=== PATIENT | female | born 2000 | race Caucasian/White ===

== ENCOUNTER 2021-07-16 17:48 | Inpatient (IN) | payer MEDICAID, SELFPAY ==
[~2021-07-16] VITALS: Ht 165.1 cm; Wt 66.2 kg
--- NOTE | 2021-07-16 17:50 | NUR ---
Pt triaged and placed in waiting room.
[2021-07-16 18:03] VITALS: BP_SYST 138
--- NOTE | 2021-07-16 21:52 | NUR ---
PT TO BED 6 FOR EVALUATION.
--- NOTE | 2021-07-16 22:00 | NUR ---
RECEIVED PT IN ROOM 6, AAOX4, SKIN W/D TO TOUCH W/ C/O OF MID EPIGASTRIC ABD PAIN THAT STARTED 3 HRS AGO, 08/29. PENDING ER MD FAJRADO
[2021-07-16] MEDS ORDERED: MAG HYDROX/AL HYDROX/SIMETH 30 ML, LIDOCAINE VISCOUS 2% 15ML (PO) 15 ML, DICYCLOMINE HC... PO ONE ×3 (22:15)
--- NOTE | 2021-07-16 22:20 | NUR ---
SEEN BY SHELBY FLOWERS.
[2021-07-16 23:04] LABS: BASOPHILS % (AUTO) 0.4 % (0.0-2.0); EOSINOPHILS # (AUTO) 0.1 K/uL (0.0-0.4); EOSINOPHILS % (AUTO) 0.7 % (0.0-4.0); HEMATOCRIT 37.1 % (36-48); HEMOGLOBIN 12.7 g/dL (12.0-16.0); LYMPHOCYTES # (AUTO) 2.8 K/uL (1.0-5.5); LYMPHOCYTES % (AUTO) 27.2 % (20.5-51.5); MEAN CORPUSCULAR HEMOGLOBIN 27 pg (27-31); MEAN CORPUSCULAR HGB CONC 34 % (32-36); MEAN CORPUSCULAR VOLUME 80 fL (79.0-98.0); MONOCYTES # (AUTO) 0.9 K/uL (0.0-1.0); MONOCYTES % (AUTO) 9.1 % (1.7-9.3); NEUTROPHILS # (AUTO) 6.3 K/uL (1.8-7.7); NEUTROPHILS % (AUTO) 62.6 % (40.0-70.0); PLATELET COUNT (AUTO) 278 K/uL (130-430); RED BLOOD CELL COUNT(AUTO) 4.65 MIL/uL (4.2-6.2); RED CELL DISTRIBUTION WIDTH 14.6 % (9.0-15.0); WHITE BLOOD COUNT (AUTO) 10.1 K/uL (4.8-10.8)
[2021-07-16 23:08] LABS: CREATININE 0.62 mg/dL (0.55-1.30); POTASSIUM 3.7 mmol/L (3.5-5.1)
[2021-07-16 23:14] LABS: ALBUMIN 3.8 g/dL (3.4-4.8); TOTAL BILIRUBIN 1.1 mg/dL (0.0-1.0)
--- NOTE | 2021-07-16 23:30 | NUR ---
S/P GI COCTAIL, PT PAIN IS UNRELIEVED. WARM TE GIVEN. AT PRESENT PT PAIN LEVEL IS 5/10. PENDING RE-TIERA. Addendum: 07/16/21 at 2331 by [email or web address] URINE COLLECTED, IN ISERTED. RESTING QUIETLY
--- NOTE | 2021-07-16 23:54 | NUR ---
AT PRESENT PT ASLEEP, VOICES NO C/O PAIN OR DISCOMFORT.
[2021-07-17] MEDS ORDERED: KETOROLAC TROMETHAMINE 30 MG VIAL IVP ONE
[2021-07-17] MEDS ORDERED: NACL 0.9% 1,000 ML IV ONE
[2021-07-17 00:06] LABS: BILIRUBIN,URINE NEGATIVE (NEGATIVE); BLOOD, URINE NEGATIVE (NEGATIVE); CLARITY/URINE SL CLOUDY (CLEAR); COLOR,URINE YELLOW (YELLOW); GLUCOSE,URINE NEGATIVE (NEGATIVE); KETONES,URINE NEGATIVE (NEGATIVE); LEUKOCYTE ESTERASE ,URINE NEGATIVE (NEGATIVE); NITRITE, URINE NEGATIVE (NEGATIVE); PH,URINE 6.5 (5.0-8.0); PROTEIN URINE TRACE (NEGATIVE); UROBILINOGEN,URINE 0.2 (0.2-1.0)
[2021-07-17] MEDS ORDERED: PIPERACILLIN/TAZO 3.375 GM in NS 50 ML IV ONE (02:15)
[2021-07-17] MEDS ORDERED: PIPERACILLIN/TAZOBACTAM 3.375 GM/VIAL (ZOSYN) IV ONE (02:23)
[2021-07-17] MEDS ORDERED: ONDANSETRON HCL 4 MG/2 ML VIAL ONE ×2 (02:26→13:59)
[2021-07-17] MEDS ORDERED: KETOROLAC TROMETHAMINE 30 MG VIAL ONE (02:26)
--- NOTE | 2021-07-17 03:00 | NUR ---
PT ASLEEP, PAIN 3/10, MID UPPER GATRIC ABD AREA. PENDING MD DISPOSITION
[2021-07-17] MEDS ORDERED: MORPHINE 2 MG/ML INJ. SYRINGE IVP PRN (06:30)
[2021-07-17] MEDS ORDERED: ONDANSETRON HCL 4 MG/2 ML VIAL IVP PRN ×2 (06:30→12:30)
--- NOTE | 2021-07-17 06:30 | NUR ---
APatient will be admitted to care of [facility]. Admitted to MED SURG unit. PENDING ROOM ASSIGNMENT. Belongings list completed. Complete and up to date summary report printed. SBAR report to be given at bedside with opportunity for questions.
--- NOTE | 2021-07-17 06:47 | NUR ---
NEW ORDERS FOR ADMISSION TO ME, R/O CAUSE OF ABD PAIN POS. CHOLECYSTITIS. PT RESTING QUIETLY VS WNL. RESP REG NON-LABORED.
--- NOTE | 2021-07-17 07:15 | NUR ---
report received from Mila HILL
--- NOTE | 2021-07-17 08:21 | NUR ---
Patient will be admitted to care of DR. GOODEN. Admitted to MED SURG unit. Will go to room 117-B. Belongings list completed. Complete and up to date summary report printed. SBAR report to be given at bedside with opportunity for questions. IV SITE PATENT AND INFUSING WELL
--- NOTE | 2021-07-17 08:30 | NUR ---
Admit from ER Admit patient to medical-surgical unit. Received report at bedside. Patient awake and oriented x 4, ambulatory without assist. Indian-speaking only. No signs or symptoms of distress. Patient reports intermittent pain 3/10. Refusing medication at this time stating pain is tolerable.
--- NOTE | 2021-07-17 08:55 | NUR ---
CT Abdomen Patient taken to receive CT scan of abd.
--- NOTE | 2021-07-17 08:55 | NUR ---
CONSULTATION PAGED/CALLED Reason for Consultation: [] POSS CHOLECYSTITIS Person Who was Notified: [] DR ZAFAR Consulting Physician: [] DR ZAFAR Dispensary Clerk Specialty: [] GEN SURGEON Ordering Physician: [] DR GOODEN
--- NOTE | 2021-07-17 08:57 | NUR ---
CONSULTATION PAGED/CALLED Reason for Consultation: [] POSS CHOLECYSTITIS Person Who was Notified: [] ZOE Consulting Physician: [] DR SANFORD RECORDS SUPERVISOR FOR DR BERRY Railroad Car Cleaner Specialty: [] GI Ordering Physician: [] DR GOODEN
[2021-07-17 09:00] VITALS: BP_SYST 114
--- NOTE | 2021-07-17 09:15 | NUR ---
Notes Patient returned from CT scan.
[2021-07-17 09:42] VITALS: BP_SYST 114
[2021-07-17 10:30] LABS: BASOPHILS % (AUTO) 0.5 % (0.0-2.0); EOSINOPHILS # (AUTO) 0.1 K/uL (0.0-0.4); EOSINOPHILS % (AUTO) 0.9 % (0.0-4.0); HEMATOCRIT 37.2 % (36-48); HEMOGLOBIN 12.6 g/dL (12.0-16.0); LYMPHOCYTES # (AUTO) 1.4 K/uL (1.0-5.5); LYMPHOCYTES % (AUTO) 23.1 % (20.5-51.5); MEAN CORPUSCULAR HEMOGLOBIN 27 pg (27-31); MEAN CORPUSCULAR HGB CONC 34 % (32-36); MEAN CORPUSCULAR VOLUME 81 fL (79.0-98.0); MONOCYTES # (AUTO) 0.6 K/uL (0.0-1.0); MONOCYTES % (AUTO) 10.3 % (1.7-9.3); NEUTROPHILS % (AUTO) 65.2 % (40.0-70.0); PLATELET COUNT (AUTO) 269 K/uL (130-430); RED BLOOD CELL COUNT(AUTO) 4.62 MIL/uL (4.2-6.2); RED CELL DISTRIBUTION WIDTH 14.8 % (9.0-15.0); WHITE BLOOD COUNT (AUTO) 6.1 K/uL (4.8-10.8)
[2021-07-17 10:42] LABS: CALCIUM 8.2 mg/dL (8.4-11.0); CREATININE 0.59 mg/dL (0.55-1.30)
[2021-07-17 10:48] LABS: PROTHROMBIN TIME 10.5 SECS (9.5-12.5)
[2021-07-17 10:52] LABS: ALBUMIN 3.3 g/dL (3.4-4.8); TOTAL BILIRUBIN 1.1 mg/dL (0.0-1.0)
--- NOTE | 2021-07-17 11:10 | NUR ---
Surgery Patient taken to OR for surgery.
[2021-07-17] MEDS: KCL 20 mEq in D5/0.45NS 1000mL 1,000 ML IV SCH ×3 (11:30→23:06)
[2021-07-17] MEDS ORDERED: SEVOFLURANE 15 MIN GAS INH ONE ×2 (12:00→13:53)
[2021-07-17] MEDS ORDERED: GLYCOPYRROLATE 0.2 MG/ML VIAL IJ ONE (12:00)
[2021-07-17] MEDS ORDERED: MIDAZOLAM HCL 5 MG/5 ML VIAL IVP ONE ×2 (12:00→13:53)
[2021-07-17] MEDS ORDERED: fentaNYL CITRATE/PF 100 MCG/2 ML AMP IVP ONE ×2 (12:00→13:53)
[2021-07-17] MEDS ORDERED: PROPOFOL 200MG/ 20ML VIAL (DIPRIVAN) IV ONE ×2 (12:00→13:53)
[2021-07-17] MEDS ORDERED: LR 1,000 ML IV.SOLN IV ONE (12:00)
[2021-07-17] MEDS ORDERED: NEOSTIGMINE METHYLSULFATE 1 MG/ML, 10 ML VIAL IVP ONE (12:00)
[2021-07-17] MEDS ORDERED: NS IRRIG SOLN 1000 ML IR ONE (12:00)
[2021-07-17] MEDS ORDERED: CEFAZOLIN 2 GM IVPB PREMIX 50 ML IV ONE (12:00)
[2021-07-17] MEDS ORDERED: ROCURONIUM BROMIDE 10 MG/ML (ZEMURON) IV ONE (12:00)
[2021-07-17] MEDS ORDERED: METOCLOPRAMIDE HCL 10 MG/2 ML VIAL IVP PRN (12:30)
[2021-07-17] MEDS ORDERED: fentaNYL CITRATE/PF 100 MCG/2 ML AMP IVP PRN (12:30)
[2021-07-17] MEDS: fentaNYL CITRATE/PF 100 MCG/2 ML AMP IVP PRN ×2 (13:49→14:05)
[2021-07-17] MEDS ORDERED: SUCCINYLCHOLINE CHLORIDE 20 MG/ML(QUELICIN) IVP ONE (13:53)
[2021-07-17] MEDS ORDERED: SUGAMMADEX SODIUM 200 MG/2 ML VIAL IV ONE (13:53)
[2021-07-17] MEDS ORDERED: ONDANSETRON HCL 4 MG/2 ML VIAL IVP ONE ×2 (13:53)
[2021-07-17] MEDS ORDERED: ePHEDrine sulfate 50 MG/ML VIAL IVP ONE (13:53)
[2021-07-17] MEDS ORDERED: DEXAMETHASONE SOD PHOSPHATE 4 MG/ML VIAL IVP ONE (13:53)
[2021-07-17] MEDS ORDERED: METOCLOPRAMIDE HCL 10 MG/2 ML VIAL IVP ONE (13:53)
[2021-07-17] MEDS ORDERED: NS 1000 ML IV.SOLN IV ONE (13:53)
[2021-07-17] MEDS ORDERED: fentaNYL CITRATE/PF 100 MCG/2 ML AMP ONE (13:59)
--- NOTE | 2021-07-17 15:07 | NUR ---
notes received pt from surgery s/p lap cholecystectomy with cholangiogram x3 incision noted, with NORMA drain on the right abdomen empty at this time. patient is drowsy. pain is controlled. will monitor.
[2021-07-17] MEDS: MORPHINE 4 MG INJ. 4 MG/ML VIAL IVP PRN (15:45)
[2021-07-17 16:00] VITALS: BP_SYST 127
--- NOTE | 2021-07-17 17:00 | NUR ---
Seen by Dr. Seth at bedside and explain about ERCP in AM with nurse who speak luxembourgish.
[2021-07-17] MEDS: HYDROcodone/ACETAMIN 5-325 MG TAB (NORCO/ VICODIN) PO PRN ×2 (17:09→22:42)
--- NOTE | 2021-07-17 18:00 | NUR ---
Notes attempt to ambulate patient on the bathroom but feels dizzy, pt put back to bed, patient able to void on bedpan,
--- NOTE | 2021-07-17 19:30 | NUR ---
Opening note Received report from day nurse. Pt resting with HOB elevated. Eyes closed, verbally responsive, alert x4 and Albanian speaking. No respiratory distress, non labored breathing. IV on LAC running IVF. All needs attended to, call light within reach. Bed to lowest/locked/alarmed. On fall/aspiration precaution.
[2021-07-17 20:00] VITALS: BP_SYST 134
--- NOTE | 2021-07-17 22:30 | NUR ---
note ambulated pt to bathroom, steady gate noted, no respiratory distress, pain noted at surgery site. Given pain medication PRN.
[2021-07-18] VITALS: BP_SYST 128
--- NOTE | 2021-07-18 06:14 | NUR ---
Closing note Pt sleeping, awake easily, alertx4, no SOB noted at this time. IV site patent and intact, no complications at this time. Bed to lowest/locked/alarmed. Call light within reach, on fall/aspiration precaution.
[2021-07-18 08:00] VITALS: BP_SYST 126
[2021-07-18 08:03] LABS: BASOPHILS % (AUTO) 0.5 % (0.0-2.0); EOSINOPHILS # (AUTO) 0.1 K/uL (0.0-0.4); EOSINOPHILS % (AUTO) 1.4 % (0.0-4.0); HEMATOCRIT 38.6 % (36-48); HEMOGLOBIN 12.8 g/dL (12.0-16.0); LYMPHOCYTES # (AUTO) 1.9 K/uL (1.0-5.5); LYMPHOCYTES % (AUTO) 28.5 % (20.5-51.5); MEAN CORPUSCULAR HEMOGLOBIN 27 pg (27-31); MEAN CORPUSCULAR HGB CONC 33 % (32-36); MEAN CORPUSCULAR VOLUME 81 fL (79.0-98.0); MONOCYTES # (AUTO) 0.5 K/uL (0.0-1.0); NEUTROPHILS # (AUTO) 4.1 K/uL (1.8-7.7); NEUTROPHILS % (AUTO) 61.6 % (40.0-70.0); PLATELET COUNT (AUTO) 251 K/uL (130-430); RED BLOOD CELL COUNT(AUTO) 4.74 MIL/uL (4.2-6.2); RED CELL DISTRIBUTION WIDTH 14.7 % (9.0-15.0); WHITE BLOOD COUNT (AUTO) 6.6 K/uL (4.8-10.8)
[2021-07-18 08:04] LABS: PROTHROMBIN TIME 10.4 SECS (9.5-12.5)
[2021-07-18 08:57] LABS: ALBUMIN 3.2 g/dL (3.4-4.8); CALCIUM 8.2 mg/dL (8.4-11.0); CREATININE 0.62 mg/dL (0.55-1.30); POTASSIUM 3.7 mmol/L (3.5-5.1); TOTAL BILIRUBIN 1.1 mg/dL (0.0-1.0)
--- NOTE | 2021-07-18 09:49 | NUR ---
Nutrition Update Bradley Scale 18 noted. Pt admitted for possible cholecystitis. Diet: NPO BMI: 24.3 kg/m2 RD to follow per nutrition care standards.
[2021-07-18] MEDS: KCL 20 mEq in D5/0.45NS 1000mL 1,000 ML IV SCH (11:48)
[2021-07-18] MEDS: MORPHINE 4 MG INJ. 4 MG/ML VIAL IVP PRN (11:52)
[2021-07-18 16:14] VITALS: BP_SYST 117
[2021-07-18 20:50] VITALS: BP_SYST 128
--- NOTE | 2021-07-18 21:15 | NUR ---
Note During initial body assessment, pt voice concern regarding vaginal spotting. Visual check, no blood noted, drea-care noted very minimal brown to dark red smudge tinged on a white wash towel. No compliant of pain or discomfort. Vitals and labs within normal range. According to the pt last menstrual cycle was 1 week ago and had a neg test when admitted into the ER. Paged Dr. Jaimes regarding pt's concern. Received order, [employer] + transvag non preg.
[2021-07-18] MEDS: HYDROcodone/ACETAMIN 5-325 MG TAB (NORCO/ VICODIN) PO PRN (21:46)
[2021-07-19] VITALS: BP_SYST 134
[2021-07-19] MEDS: KCL 20 mEq in D5/0.45NS 1000mL 1,000 ML IV SCH (00:04)
--- NOTE | 2021-07-19 03:15 | NUR ---
note Pt sleeping, no facial grimacing at this time. All needs provided.
--- NOTE | 2021-07-19 06:25 | NUR ---
Closing note Pt resting in bed, no distress or discomfort. IV patent and intact, no complications. IVF running. All needs attended to and met. Call light within reach. Bed to lowest/locked/alarmed. On fall/aspiration precaution. Will endorse to day nurse.
[2021-07-19 07:00] VITALS: BP_SYST 120
[2021-07-19 07:19] LABS: BASOPHILS % (AUTO) 0.5 % (0.0-2.0); EOSINOPHILS # (AUTO) 0.1 K/uL (0.0-0.4); EOSINOPHILS % (AUTO) 2.2 % (0.0-4.0); HEMATOCRIT 39.1 % (36-48); HEMOGLOBIN 12.9 g/dL (12.0-16.0); LYMPHOCYTES # (AUTO) 1.5 K/uL (1.0-5.5); LYMPHOCYTES % (AUTO) 27.5 % (20.5-51.5); MEAN CORPUSCULAR HEMOGLOBIN 27 pg (27-31); MEAN CORPUSCULAR HGB CONC 33 % (32-36); MEAN CORPUSCULAR VOLUME 82 fL (79.0-98.0); MONOCYTES # (AUTO) 0.4 K/uL (0.0-1.0); MONOCYTES % (AUTO) 8.3 % (1.7-9.3); NEUTROPHILS # (AUTO) 3.3 K/uL (1.8-7.7); NEUTROPHILS % (AUTO) 61.5 % (40.0-70.0); PLATELET COUNT (AUTO) 264 K/uL (130-430); RED BLOOD CELL COUNT(AUTO) 4.78 MIL/uL (4.2-6.2); RED CELL DISTRIBUTION WIDTH 14.7 % (9.0-15.0); WHITE BLOOD COUNT (AUTO) 5.3 K/uL (4.8-10.8)
--- NOTE | 2021-07-19 07:35 | NUR ---
NURSE REPORT REPORT OBTAINED FROM NIGHT NURSE EMMA AND THIS NURSE ASSUMED CARE OF PATIENT. RECEIVED PATIENT ASLEEP WITHOUT ANY SXS OF PAIN OR DISTRESS.
[2021-07-19 08:00] VITALS: BP_SYST 120
[2021-07-19 08:18] LABS: ALBUMIN 3.3 g/dL (3.4-4.8); CALCIUM 8.6 mg/dL (8.4-11.0); CREATININE 0.63 mg/dL (0.55-1.30); POTASSIUM 3.9 mmol/L (3.5-5.1); TOTAL BILIRUBIN 1.5 mg/dL (0.0-1.0)
[2021-07-19] MEDS: MORPHINE 4 MG INJ. 4 MG/ML VIAL IVP PRN ×2 (10:54→19:01)
--- NOTE | 2021-07-19 11:15 | NUR ---
NURSE CARE MEDICATED FOR PAIN WITH MORPHINE 4 MG AT 1054 WITH RELIEF OF PAIN. PATIENT GIVEN MRI QUESTIONNAIRE IN [place]. SHE HAD THE ULTRASOUND OF PELVIS THIS AM, AND THEN MRI WAS DONE.
[2021-07-19 12:00] VITALS: BP_SYST 116
--- NOTE | 2021-07-19 12:32 | NUR ---
Dietitian Recommendations *Recommend: advance diet when medically appropriate (Cardiac Low Fat diet) *Diet education by RD f/u. Please see Nutritional Assessment for details. BRUCE, JAMES
[2021-07-19] MEDS ORDERED: INDOMETHACIN 50 MG SUPP.RECT RC ONE (12:45)
--- NOTE | 2021-07-19 13:00 | NUR ---
NURSE NOTES PATIENT WENT FOR ERCP AND NPO FOR PROCEDURE.
[2021-07-19] MEDS ORDERED: MEPERIDINE HCL/PF 25 MG/ML DISP.SYRIN IVP PRN (15:00)
[2021-07-19] MEDS ORDERED: LR 1,000 ML IV SCH (15:00)
[2021-07-19] MEDS ORDERED: HYDROmorphone 2 MG/ML VIAL IVP PRN ×2 (15:00)
[2021-07-19] MEDS ORDERED: HYDROmorphone 1 MG/ML INJ. CARTRIDGE IVP PRN (15:00)
--- NOTE | 2021-07-19 18:31 | NUR ---
NURSE CARE MEDICATED WITH MORPHINE 4 MG IVP WITH RELIE AT 1831. ON CLEAR LIQUID. VISITOR AT BEDSIDE. VSS AFEB.
--- NOTE | 2021-07-19 19:30 | NUR ---
NURSE REPORT AND ENDORSEMENT REPORT GIVEN TO NIGHT NURSE LAUREN TO ASSUME CARE OF PATIENT. SBAR GIVEN AND ALL QUESTIONS ANSWERED.
--- NOTE | 2021-07-19 19:30 | NUR ---
Opening note Received report from day Nurse. Pt sleeping and lying on the side. Sleeping, awake to voice, alertx4 albanian speaking and family at bedside. IVF running on LAC, no complications at this time. Non labored, no SOB at this time. No distress. All needs attended to, call light within reach. Bed to lowest/locked. On fall/aspiration precaution.
[2021-07-19 20:37] VITALS: BP_SYST 126
[2021-07-20] VITALS: BP_SYST 122
[2021-07-20] MEDS: MORPHINE 4 MG INJ. 4 MG/ML VIAL IVP PRN ×4 (01:09→18:45)
[2021-07-20] MEDS: D5/0.45 NS 1,000 ML IV SCH ×2 (01:14→03:00)
[2021-07-20] MEDS: HYDROcodone/ACETAMIN 5-325 MG TAB (NORCO/ VICODIN) PO PRN ×2 (03:23→08:16)
[2021-07-20] MEDS: ONDANSETRON HCL 4 MG/2 ML VIAL IVP PRN ×2 (04:02→08:14)
--- NOTE | 2021-07-20 06:26 | NUR ---
closing note Pt resting, awake easily to voice and touch. No respiratory distress on room air. complaint of pain and discomfort, pain meds PRN given as per order. Noted N/V minimal clear liquid noted 10-40cc of emesis, PRN medication given. IV patent and intact running IVF. Alert x4, Lao speaking. Call light within reach, bed to lowest/locked/alarmed. On fall/aspiration precaution. Will endorse to day nurse.
[2021-07-20 07:00] VITALS: BP_SYST 133
[2021-07-20 07:51] LABS: ALBUMIN 3.2 g/dL (3.4-4.8); CALCIUM 8.5 mg/dL (8.4-11.0); CREATININE 0.75 mg/dL (0.55-1.30); POTASSIUM 3.4 mmol/L (3.5-5.1)
[2021-07-20 08:00] VITALS: BP_SYST 133
[2021-07-20 08:03] LABS: BASOPHILS % (AUTO) 0.1 % (0.0-2.0); HEMATOCRIT 43.8 % (36-48); HEMOGLOBIN 14.4 g/dL (12.0-16.0); LYMPHOCYTES # (AUTO) 1.1 K/uL (1.0-5.5); LYMPHOCYTES % (AUTO) 6.2 % (20.5-51.5); MEAN CORPUSCULAR HEMOGLOBIN 27 pg (27-31); MEAN CORPUSCULAR HGB CONC 33 % (32-36); MEAN CORPUSCULAR VOLUME 82 fL (79.0-98.0); MONOCYTES # (AUTO) 1.1 K/uL (0.0-1.0); MONOCYTES % (AUTO) 6.4 % (1.7-9.3); NEUTROPHILS # (AUTO) 14.7 K/uL (1.8-7.7); PLATELET COUNT (AUTO) 324 K/uL (130-430); RED BLOOD CELL COUNT(AUTO) 5.37 MIL/uL (4.2-6.2); RED CELL DISTRIBUTION WIDTH 15.3 % (9.0-15.0); WHITE BLOOD COUNT (AUTO) 16.8 K/uL (4.8-10.8)
--- NOTE | 2021-07-20 08:14 | NUR ---
NURSE REPORT REPORT OBTAINED FROM NIGHT NURSE EMMA AT 0720 AND THIS NURSE ASSUMED CARE OF PATIENT. RECEIVED PATIENT ASLEEP AT BEGINNING OF SHIFT. VSS. AFEB. MEDICATED WITH ZOFRAN 4 MG IVP AT 0814 AND NORCO 5-325 GIVEN FOR PAIN
[2021-07-20 09:58] LABS: TOTAL BILIRUBIN 2.9 mg/dL (0.0-1.0)
--- NOTE | 2021-07-20 10:45 | NUR ---
NURSE REPORT MEDICATED FOR PAIN WITH MORPHINE 4 MG IVP 1013BEFORE GOING TO CT SCAN. CLEAR LIQUID TAKE LIKE 10-25%. IV D5 1/2NS AND 20 MeQ kcl: INFUSING AT 100 ML/HR. IV SL'D WHEN WHEN WENT TO CT SCAN.
[2021-07-20] MEDS: D5LR 1,000 ML IV SCH ×3 (11:15→23:03)
[2021-07-20 12:00] VITALS: BP_SYST 154
[2021-07-20] MEDS: PIPERACILLIN/TAZO 3.375/DEX-IS 50 ML IV SCH ×3 (12:00→23:44)
--- NOTE | 2021-07-20 12:00 | NUR ---
NURSE CARE VSS. AFEB. NO C/O PAIN OR DISCOMFORT.
[2021-07-20 15:24] LABS: NEUTROPHILS % (AUTO) 87.3 % (40.0-70.0)
[2021-07-20 16:00] VITALS: BP_SYST 134
--- NOTE | 2021-07-20 16:00 | NUR ---
NURSE CARE VSS. AFEB. NO C/O PAIN. BANDAIDS TO LOWER ABD CDI. NO NORMA DRAIN.
--- NOTE | 2021-07-20 19:20 | NUR ---
NURSE REPORT AND ENDORSEMENT REPORT GIVEN TO NIGHT NURSE EMMA TO ASSUME CARE OF PATIENT. PT MEDICATED WITH MORPHINE 4 MG IVP AT 1845 WITH RELIEF OF PAIN. STILL ON CLEAR LIQUID. NO FURTHER NAUSEA AND VOMITING. Addendum: 07/20/21 at 2043 by [employer] one senior staff specialized employment PATIENT DOESN'T HAVE NORMA DRAIN AND BANDAIDS TO ABD SITES CDI.
--- NOTE | 2021-07-20 19:30 | NUR ---
Opening note Pt resting, Eyes closed, awake easily to voice and touch. No respiratory distress on room air. No complaint or discomfort. Family at beside. IV patent and intact to right hand Fluids running. Pt alert x4 Persian speaking. Call light within reach, bed to lowest/locked/alarmed. On fall/aspiration precaution. Will continue to monitor and make frequent rounds.
[2021-07-20 20:00] VITALS: BP_SYST 134
[2021-07-21] VITALS: BP_SYST 133
[2021-07-21] MEDS: D5LR 1,000 ML IV SCH ×5 (02:46→22:59)
--- NOTE | 2021-07-21 03:30 | NUR ---
Note Pt resting comfortable, no distress noted at this time. During a lot better, able to sleep more than last night.
[2021-07-21] MEDS: PIPERACILLIN/TAZO 3.375/DEX-IS 50 ML IV SCH ×3 (05:51→16:53)
--- NOTE | 2021-07-21 06:23 | NUR ---
closing note Pt resting, awake easily to voice and touch. No respiratory distress on room air. No complaint or discomfort. IV patent and intact IVF running. Pt alert x4. Call light within reach, bed to lowest/locked/alarmed. On fall/aspiration precaution.
[2021-07-21 07:31] LABS: BASOPHILS # (AUTO) 0.1 K/uL (0.0-0.2); BASOPHILS % (AUTO) 0.2 % (0.0-2.0); HEMOGLOBIN 14.6 g/dL (12.0-16.0); LYMPHOCYTES # (AUTO) 0.9 K/uL (1.0-5.5); LYMPHOCYTES % (AUTO) 4.2 % (20.5-51.5); MEAN CORPUSCULAR HEMOGLOBIN 27 pg (27-31); MEAN CORPUSCULAR HGB CONC 33 % (32-36); MEAN CORPUSCULAR VOLUME 81 fL (79.0-98.0); MONOCYTES # (AUTO) 1.2 K/uL (0.0-1.0); NEUTROPHILS # (AUTO) 18.2 K/uL (1.8-7.7); NEUTROPHILS % (AUTO) 89.6 % (40.0-70.0); PLATELET COUNT (AUTO) 275 K/uL (130-430); RED BLOOD CELL COUNT(AUTO) 5.41 MIL/uL (4.2-6.2); RED CELL DISTRIBUTION WIDTH 15.4 % (9.0-15.0); WHITE BLOOD COUNT (AUTO) 20.4 K/uL (4.8-10.8)
[2021-07-21 08:00] VITALS: BP_SYST 153
--- NOTE | 2021-07-21 08:00 | NUR ---
PATIENT IN BED, NO S/S OF DISTRESS, A/O X4, [place]EL[place] SPEAKING, USE FLOOR STAFF TO TRANSLATE APPROPRIATE, NO COMPLAINTS OF PAIN, BOWEL SOUNDS PRESENT, SAFETY MEASURES IN PLACE, CALL LIGHT WITHIN REACH, WILL CONTINUE TO MONITOR.
[2021-07-21 08:29] LABS: CALCIUM 8.4 mg/dL (8.4-11.0); CREATININE 0.67 mg/dL (0.55-1.30); POTASSIUM 3.6 mmol/L (3.5-5.1)
[2021-07-21 10:58] LABS: TOTAL BILIRUBIN 5.5 mg/dL (0.0-1.0)
--- NOTE | 2021-07-21 12:00 | NUR ---
PATIENT IN BED, NO S/S OF DISTRESS, IV NO LONGER WORKING, REMOVED AND PLACE NEW IV IN R HAND 22 GAUGE, INTACT PATENT, TOLERATED WELL, D5LR RUNNING AT 200ML/HR.
[2021-07-21] MEDS: MORPHINE 4 MG INJ. 4 MG/ML VIAL IVP PRN (15:05)
--- NOTE | 2021-07-21 16:00 | NUR ---
SPOKE TO DR ZAFAR ABOUT PATIENT STATUS OF SOB, O2 SAT 97%, ABDOMINAL PAIN 06/29, PATIENT STATED SHE HAD NOT VOIDED SINCE YESTERDAY, BLADDER SCAN SHOWED 250ML OF URINE IN BLADDER, HAD PATIENT AMBULATE TO VOID, WAS ABLE TO ABULATE AND HAD 150ML OUT, PAIN/ SOB DID NOT EASE, DR ZAFAR STATED TO CALL THE PRIMARY AND ASK HIM SINCE SHE IS FINE IN A POST OP STAND POINT.
--- NOTE | 2021-07-21 16:33 | NUR ---
SPOKE TO DR WEBB, NOTIFIED OF PATIENT STATUS SAME DR ZAFAR, STATED WHAT SHE IS EXPERIENCING IS NORMAL AND TO DO A STAT CHEST X RAY.
--- NOTE | 2021-07-21 19:28 | NUR ---
PATIENT AMBULATED TO BATHROOM, VOIDED, NOW IN CHAIR, AT DINNER IN CHAIR. NO COMPLAINTS OF PAIN OR SOB.
[2021-07-21 20:30] VITALS: BP_SYST 138
[2021-07-21] MEDS: HYDROcodone/ACETAMIN 5-325 MG TAB (NORCO/ VICODIN) PO PRN (20:58)
--- NOTE | 2021-07-21 21:00 | NUR ---
Pain c/o mid abdominal pain rated 4/10 described as aching pain. Clymer given as ordered.
--- NOTE | 2021-07-21 23:06 | NUR ---
Sleeping quietly. No sign/symptom of pain.
[2021-07-22] MEDS: PIPERACILLIN/TAZO 3.375/DEX-IS 50 ML IV SCH ×5 (00:44→23:19)
[2021-07-22 00:53] VITALS: BP_SYST 107
--- NOTE | 2021-07-22 00:57 | NUR ---
Resting in bed with eyes closed, easily aroused. Denies pain or discomfort. Vital signs stable. Call light within reach.
[2021-07-22] MEDS: FLUCONAZOLE 100 mg/ NS 50 ML IV SCH (02:35)
[2021-07-22] MEDS: D5LR 1,000 ML IV SCH ×5 (05:03→23:15)
[2021-07-22 06:44] LABS: BASOPHILS % (AUTO) 0.2 % (0.0-2.0); HEMATOCRIT 39.3 % (36-48); HEMOGLOBIN 13.1 g/dL (12.0-16.0); LYMPHOCYTES # (AUTO) 1.2 K/uL (1.0-5.5); LYMPHOCYTES % (AUTO) 5.5 % (20.5-51.5); MEAN CORPUSCULAR HEMOGLOBIN 27 pg (27-31); MEAN CORPUSCULAR HGB CONC 33 % (32-36); MEAN CORPUSCULAR VOLUME 81 fL (79.0-98.0); MONOCYTES # (AUTO) 1.5 K/uL (0.0-1.0); MONOCYTES % (AUTO) 6.6 % (1.7-9.3); NEUTROPHILS # (AUTO) 19.4 K/uL (1.8-7.7); PLATELET COUNT (AUTO) 205 K/uL (130-430); RED BLOOD CELL COUNT(AUTO) 4.83 MIL/uL (4.2-6.2); RED CELL DISTRIBUTION WIDTH 15.9 % (9.0-15.0); WHITE BLOOD COUNT (AUTO) 22.1 K/uL (4.8-10.8)
[2021-07-22 07:25] LABS: ALBUMIN 2.5 g/dL (3.4-4.8); CALCIUM 7.7 mg/dL (8.4-11.0); CREATININE 0.58 mg/dL (0.55-1.30); POTASSIUM 3.2 mmol/L (3.5-5.1); TOTAL BILIRUBIN 2.9 mg/dL (0.0-1.0)
--- NOTE | 2021-07-22 07:42 | NUR ---
PATIENT IN BED, NO S/S OF DISTRESS, TOLERATING FLUIDS AND STAYING ON ROOM AIR, NO REPORTED PAIN OR SOB AT THIS TIME, AMBULATES TO THE BATHROOM, BED IN LOWEST LOCKED POSITION, SAFETY MEASURES IN PLACE, CALL LIGHT WITHIN REACH, IV INTACT PATENT, WILL CONTINUE TO MONITOR, WILL USE CHIMNEY BUILDER HELPER FOR CAMEROONIAN SPEAKING PATIENT.
[2021-07-22 08:00] VITALS: BP_SYST 131
[2021-07-22] MEDS: HYDROcodone/ACETAMIN 5-325 MG TAB (NORCO/ VICODIN) PO PRN (10:29)
--- NOTE | 2021-07-22 11:09 | NUR ---
SPOKE TO JAELYN AQUINO MD AT BEDSIDE, UPDATED ON PATIENT STATUS, TOLD PATIENT HAD BM TODAY, PAIN IS IN ABDOMEN AND STATES IS FEELING SOB, EXPLAINED O2 SAT IS 97%, HR IS ELEVATED WELL BP, STATED CHEST X RAY SHOWED ATELECTASIS, TOLD WILL ORDER INCENTIVE SPIROMETRY AND TO CONTINUE MEDICATING FOR PAIN.
[2021-07-22 11:57] LABS: NEUTROPHILS % (AUTO) 87.7 % (40.0-70.0)
[2021-07-22 12:00] VITALS: BP_SYST 129
--- NOTE | 2021-07-22 15:20 | NUR ---
Dietitian Recommendations * Recommend continuing clear liquid diet and advance diet if/when medically appropriate (cardiac diet) * Diet education by RD F/U LP, RD Please refer to Nutrition F/U for details.
--- NOTE | 2021-07-22 15:20 | NUR ---
Nutrition F/U RD reviewed pt's current EMR record including diet Hx, physician notes, nursing notes, pertinent labs/meds/procedures, care trends, and care activity. Admission Dx: Possible Cholecystitis Pt w/: Cholelithiasis w/ recurrent abdominal pain, recent , abnormal LFT per MD notes. 07/17 S/P Lap cholecystectomy. SARS-CoV-2 Ag Rapid 07/17 Negative Current Diet Order/Nutrition Support: Clear liquid x2 days Subjective Info: RD rounded to pt's room -- pt had family member present. Both Slovak-speaking. RD spoke w/ pt's RN who reported that pt has not had much of an appetite is not currently tolerating clear liquids as she has been having nausea today, but no vomiting. She also reported that pt passed a BM prior to ambulating in room w/ her today. Per EMR review, PO intake average of 20% x5 meals; abd is soft and non-distended w/ active bowel sounds; no BM noted; Bradley scale: 19 w/ anterior abd incision noted. Pt is not yet meeting nutritional needs. Pertinent Medications: Reviewed Pertinent Labs: K 3 L, BG 164 H, BUN 6 L, ALP 176 H, AST 22 WNL, ALT 303 H Ht: 5'5" Wt: 146#/66 kg (07/19) -- stable Body Mass Index: 24.29 kg/m2 %IBW: 117 [place]/Adjusted Body Weight: 125#/57kg Estimated Energy Expenditure (kcals/day) 4762-0975 Kcal/day (25-30 kcal/kg CBW for maintenance) Estimated Protein Required (g/day) 66-79 gm/day (1-1.2 gm/kg CBW for post surgery repletion) Estimated Fluid Required (l/day) 1.7-2L/day (1ml/calorie for maintenance) Problem/Etiology/Signs/Symptoms Inadequate protein-calorie intake r/t diet interruption AEB PO intake meets <50% of estimated needs w/ NPO and liquid diet prior to medical procedure. *ongoing Expected Outcomes/Goals Monitor diet advancement, appetite and PO intake w/ goal of pt meeting more than 75% of estimated nutritional needs, labs trending WNL, normal GI function, skin integrity/wt maintenance. Dietitian Recommendations * Recommend continuing clear liquid diet and advance diet if/when medically appropriate (cardiac diet) * Diet education by RD F/U Follow Up High Risk: F/U in 2-3 days
[2021-07-22 16:00] VITALS: BP_SYST 131
--- NOTE | 2021-07-22 16:00 | NUR ---
used translatore to determine pain level and location tolerated well ambulated
[2021-07-22] MEDS: ONDANSETRON HCL 4 MG/2 ML VIAL IVP PRN (18:19)
--- NOTE | 2021-07-22 19:18 | NUR ---
patient ambulated 2x around the unit, tolerated well, aware. educated to ambulte in room
[2021-07-22 20:00] VITALS: BP_SYST 131
--- NOTE | 2021-07-22 20:00 | NUR ---
PT WITH TEMP OF 101.2 AND HR OF 135. WBC IS ALSO ELEVATED AT 22.1. ICE PACKS WERE APPLIED TO PT'S FOREHEAD, UNDER ARMS, CHEST AND THIGHS. IVF OF D5LR IS INFUSING AT 200ML/HR IN RH WITHOUT ANY SIGNS OF INFILTRATION. WILL NOTIFY DR. GOODEN.
--- NOTE | 2021-07-22 20:15 | NUR ---
PT WAS GIVEN INCENTIVE SPIROMETER AND ENCOURAGED TO USE IT 10X Q 1HR WA. PT VERBALIZED UNDERSTANDING. PT'S IS USAGE IS AT 500ML.
--- NOTE | 2021-07-22 20:18 | NUR ---
MADELINE GOODEN FOR THE NURSE.
--- NOTE | 2021-07-22 20:37 | NUR ---
2ND PAGE FOR DR. GOODEN FOR NURSE
--- NOTE | 2021-07-22 20:40 | NUR ---
DR. GOODEN CALLED BACK AND HE WAS INFORMED OF PT HAVING ELEVATED WBC, HR IN THE 130'S AND TEMP OF 101.2. NEW ORDERS RECEIVED.
[2021-07-22] MEDS: ACETAMINOPHEN 325 MG TABLET PO PRN (21:39)
--- NOTE | 2021-07-22 21:39 | NUR ---
TEMP STILL 101.2. TYLENOL 650MG WAS GIVEN PO. COOLING MEASURE WITH ICE PACKS CONTINUED.
[2021-07-22] MEDS ORDERED: VANCOMYCIN HCL 1 GM/NS PREMIX 250 ML IV ONE (22:30)
--- NOTE | 2021-07-22 22:36 | NUR ---
CONSULT REASON FOR CONSULT: FEVER, ELEVATED WBC PERSON I SPOKE WITH: SANTO CONSULTING PHYSICIAN: DR. MARAVILLA HARDWOOD FINISHER PHONE NUMBER: [phone] ORDERING PHYSICIAN: DR. GOODEN
--- NOTE | 2021-07-22 22:39 | NUR ---
TEMP 98.3. IVF IS INFUSING WELL IN RH AT 200ML/HR WITHOUT ANY SIGNS OF INFILTRATION. Addendum: 07/23/21 at 0356 by Mary Chakraborty RN TEMP WAS 98.2.
--- NOTE | 2021-07-22 22:40 | NUR ---
PT AMBULATED TO THE BATHROOM WITH STANDBY ASSIST AND SHE VOIDED LARGE AMOUNT OF CLEAR YELLOWISH URINE.
[2021-07-22] MEDS ORDERED: VANCOMYCIN HCL 1000 MG/VIAL IV ONE (23:13)
--- NOTE | 2021-07-22 23:52 | NUR ---
PT WAS STARTED ON IV VANCOMYCIN ORDERED BY DR. OLW.
[2021-07-23] VITALS: BP_SYST 133
[2021-07-23] MEDS ORDERED: FLUCONAZOLE 200 mg/ NS 100 ML IV ONE (00:56)
--- NOTE | 2021-07-23 02:35 | NUR ---
PT WAS STARTED ON IV DIFLUCAN ORDERED BY DR. LOW.
[2021-07-23] MEDS: D5LR 1,000 ML IV SCH ×3 (05:09→18:37)
[2021-07-23] MEDS: PIPERACILLIN/TAZO 3.375/DEX-IS 50 ML IV SCH ×3 (05:19→20:05)
[2021-07-23 06:27] LABS: BASOPHILS % (AUTO) 0.1 % (0.0-2.0); EOSINOPHILS % (AUTO) 0.1 % (0.0-4.0); HEMATOCRIT 33.2 % (36-48); LYMPHOCYTES # (AUTO) 1.2 K/uL (1.0-5.5); MEAN CORPUSCULAR HEMOGLOBIN 27 pg (27-31); MEAN CORPUSCULAR HGB CONC 33 % (32-36); MEAN CORPUSCULAR VOLUME 81 fL (79.0-98.0); MONOCYTES # (AUTO) 1.2 K/uL (0.0-1.0); MONOCYTES % (AUTO) 5.8 % (1.7-9.3); NEUTROPHILS # (AUTO) 17.7 K/uL (1.8-7.7); PLATELET COUNT (AUTO) 192 K/uL (130-430); RED BLOOD CELL COUNT(AUTO) 4.08 MIL/uL (4.2-6.2); WHITE BLOOD COUNT (AUTO) 20.1 K/uL (4.8-10.8)
[2021-07-23 06:42] LABS: ALBUMIN 2.2 g/dL (3.4-4.8); CALCIUM 7.6 mg/dL (8.4-11.0); CREATININE 0.56 mg/dL (0.55-1.30); TOTAL BILIRUBIN 1.5 mg/dL (0.0-1.0)
[2021-07-23 07:03] LABS: POTASSIUM 2.8 mmol/L (3.5-5.1)
--- NOTE | 2021-07-23 07:31 | NUR ---
ATTENDING MD DR GOODEN WAS PAGED DIRECTLY, RE: CRITICAL K LEVEL.
[2021-07-23 08:25] VITALS: BP_SYST 133
--- NOTE | 2021-07-23 08:25 | NUR ---
Routine Patient resting comfortably in bed with Dr. Culver at bedside. Patient stable at this time. Addendum: 07/23/21 at 0838 by Kasie Irizarry RN 0825: Doctor informed of K+ 2.8. Per doctor, will enter order for IV potassium.
[2021-07-23] MEDS ORDERED: POTASSIUM CHLORIDE 40 MEQ in NS 250 ML IV ONE (08:45)
--- NOTE | 2021-07-23 10:15 | NUR ---
Patient ambulating in hallway.
--- NOTE | 2021-07-23 10:40 | NUR ---
Ordered IV medication given. Started new IVF bag. Patient stable at this time.
[2021-07-23 12:00] VITALS: BP_SYST 133
--- NOTE | 2021-07-23 12:40 | NUR ---
Patient sitting in chair near window; stable with no complaint of pain at this time.
--- NOTE | 2021-07-23 15:15 | NUR ---
Scheduled IV abx given per order. Patient stable with cousin at bedside.
[2021-07-23 16:08] LABS: CALCIUM 7.8 mg/dL (8.4-11.0); CREATININE 0.77 mg/dL (0.55-1.30)
[2021-07-23] MEDS: VANCOMYCIN HCL 1,000 MG in NS 250 ML IV SCH (16:30)
[2021-07-23] MEDS ORDERED: ALPRAZolam 0.25 MG TABLET PO PRN (16:30)
--- NOTE | 2021-07-23 16:30 | NUR ---
Scheduled IV abx given per order. Patient stable at this time.
[2021-07-23 17:26] VITALS: BP_SYST 135
[2021-07-23] MEDS: ACETAMINOPHEN 325 MG TABLET PO PRN (18:20)
--- NOTE | 2021-07-23 18:20 | NUR ---
Patient medicated for temp of 100.9. Will continue to monitor.
[2021-07-23] MEDS: FLUCONAZOLE 100 mg/ NS 50 ML IV SCH (22:32)
[2021-07-24 00:09] VITALS: BP_SYST 126
[2021-07-24] MEDS: PIPERACILLIN/TAZO 3.375/DEX-IS 50 ML IV SCH ×4 (01:11→18:55)
[2021-07-24] MEDS: VANCOMYCIN HCL 1,000 MG in NS 250 ML IV SCH ×3 (01:47→23:12)
[2021-07-24] MEDS: D5LR 1,000 ML IV SCH (06:27)
[2021-07-24 07:39] LABS: BASOPHILS % (AUTO) 0.3 % (0.0-2.0); EOSINOPHILS # (AUTO) 0.1 K/uL (0.0-0.4); EOSINOPHILS % (AUTO) 0.8 % (0.0-4.0); HEMATOCRIT 31.4 % (36-48); HEMOGLOBIN 10.4 g/dL (12.0-16.0); LYMPHOCYTES # (AUTO) 1.3 K/uL (1.0-5.5); LYMPHOCYTES % (AUTO) 8.6 % (20.5-51.5); MEAN CORPUSCULAR HEMOGLOBIN 27 pg (27-31); MEAN CORPUSCULAR HGB CONC 33 % (32-36); MEAN CORPUSCULAR VOLUME 82 fL (79.0-98.0); MONOCYTES # (AUTO) 1.2 K/uL (0.0-1.0); MONOCYTES % (AUTO) 7.5 % (1.7-9.3); NEUTROPHILS # (AUTO) 12.9 K/uL (1.8-7.7); NEUTROPHILS % (AUTO) 82.8 % (40.0-70.0); PLATELET COUNT (AUTO) 210 K/uL (130-430); RED BLOOD CELL COUNT(AUTO) 3.84 MIL/uL (4.2-6.2); RED CELL DISTRIBUTION WIDTH 15.4 % (9.0-15.0); WHITE BLOOD COUNT (AUTO) 15.6 K/uL (4.8-10.8)
[2021-07-24 08:55] LABS: CALCIUM 7.9 mg/dL (8.4-11.0); CREATININE 0.72 mg/dL (0.55-1.30)
[2021-07-24 09:00] LABS: POTASSIUM 2.8 mmol/L (3.5-5.1)
--- NOTE | 2021-07-24 09:05 | NUR ---
imani from lab called for K - 2.8 . will wait for Dr De León to call back.
[2021-07-24] MEDS ORDERED: POTASSIUM CHLORIDE 10 MEQ TAB.PRT.SR PO ONE (09:45)
[2021-07-24] MEDS: POTASSIUM CHLORIDE 20 MEQ in LR 1,000 ML IV SCH (11:00)
[2021-07-24 17:33] VITALS: BP_SYST 128
--- NOTE | 2021-07-24 19:35 | NUR ---
ROUNDS PATIENT RESTING COMFORTABLY IN BED, FAMILY AT THE BEDSIDE, VITALS STABLE. ASSESSMENT DONE AND DOCUMENTED. SEE FLOWSHEET. NEEDS ATTENDED TO. SAFETY MEASURES IN PLACED. CALL LIGHT PLACED WITHIN REACH.
[2021-07-24 20:00] VITALS: BP_SYST 134
[2021-07-24] MEDS: POTASSIUM CHLORIDE 10 MEQ TAB.PRT.SR PO SCH (21:08)
[2021-07-24] MEDS: FLUCONAZOLE 100 mg/ NS 50 ML IV SCH (21:08)
[2021-07-25] VITALS: BP_SYST 129
--- NOTE | 2021-07-25 00:12 | NUR ---
PATIENT RESTING: Patient resting quietly. No acute distress noted. Vital signs within normal range.
[2021-07-25] MEDS: PIPERACILLIN/TAZO 3.375/DEX-IS 50 ML IV SCH ×5 (01:08→23:01)
[2021-07-25] MEDS: POTASSIUM CHLORIDE 20 MEQ in LR 1,000 ML IV SCH ×2 (05:53→09:14)
--- NOTE | 2021-07-25 06:50 | NUR ---
CLOSING NOTES ASSISTED PATIENT TO THE BATHROOM, NO COMPLAINTS AT THIS TIME, VITALS STABLE. ALL NEEDS ATTENDED TO. SAFETY MEASURES MAINTAINED. CALL LIGHT PLACED WITHIN REACH.
[2021-07-25 07:52] LABS: BASOPHILS % (AUTO) 0.3 % (0.0-2.0); EOSINOPHILS # (AUTO) 0.1 K/uL (0.0-0.4); EOSINOPHILS % (AUTO) 1.1 % (0.0-4.0); HEMATOCRIT 29.2 % (36-48); HEMOGLOBIN 9.8 g/dL (12.0-16.0); LYMPHOCYTES # (AUTO) 1.7 K/uL (1.0-5.5); LYMPHOCYTES % (AUTO) 12.6 % (20.5-51.5); MEAN CORPUSCULAR HEMOGLOBIN 27 pg (27-31); MEAN CORPUSCULAR HGB CONC 34 % (32-36); MEAN CORPUSCULAR VOLUME 82 fL (79.0-98.0); MONOCYTES # (AUTO) 1.1 K/uL (0.0-1.0); MONOCYTES % (AUTO) 8.1 % (1.7-9.3); NEUTROPHILS # (AUTO) 10.6 K/uL (1.8-7.7); NEUTROPHILS % (AUTO) 77.9 % (40.0-70.0); PLATELET COUNT (AUTO) 246 K/uL (130-430); RED BLOOD CELL COUNT(AUTO) 3.58 MIL/uL (4.2-6.2); RED CELL DISTRIBUTION WIDTH 15.7 % (9.0-15.0); WHITE BLOOD COUNT (AUTO) 13.6 K/uL (4.8-10.8)
[2021-07-25 08:15] VITALS: BP_SYST 140
--- NOTE | 2021-07-25 08:25 | NUR ---
AM ROUNDS: PATIENT SLEEPING DURING ROUNDS. IV FLUIDS RUNNING WELL AT RIGHT HAND. NON LABORED. CALL LIGHT WITH IN REACH. BED LOCKED AT LOWEST POSITION. STABLE.
[2021-07-25 08:47] LABS: ALBUMIN 2.1 g/dL (3.4-4.8); CALCIUM 8.2 mg/dL (8.4-11.0); CREATININE 0.79 mg/dL (0.55-1.30)
[2021-07-25] MEDS: POTASSIUM CHLORIDE 10 MEQ TAB.PRT.SR PO SCH ×2 (09:15→21:08)
--- NOTE | 2021-07-25 09:59 | NUR ---
GI ROUNDS: DR LINDSEY IN TNE ROOM AND SPOKE TO PATIENT IN [place].PATIENT NOT DC HOME DUE TO STILL WITH LOW POTASSIUM AND NEEDS TO TOLERATE CLEAR LIQUID TO ADVANCE TO FULL LIQUID PER GI. MONITOR LABS IN AM.
[2021-07-25] MEDS ORDERED: VANCOMYCIN HCL 1,000 MG in NS 250 ML IV SCH (12:00)
[2021-07-25 12:26] VITALS: BP_SYST 138
--- NOTE | 2021-07-25 14:30 | NUR ---
AMBULATES: PATIENT AMBULATED TO THE TOILET AND BACK TO HER BED.NO PROBLEM.
[2021-07-25 16:06] VITALS: BP_SYST 136
[2021-07-25 17:23] LABS: CALCIUM 8.1 mg/dL (8.4-11.0); CREATININE 0.68 mg/dL (0.55-1.30)
[2021-07-25 17:25] LABS: HEMATOCRIT 31.8 % (36-48); HEMOGLOBIN 10.4 g/dL (12.0-16.0); MEAN CORPUSCULAR HEMOGLOBIN 27 pg (27-31); MEAN CORPUSCULAR HGB CONC 33 % (32-36); MEAN CORPUSCULAR VOLUME 82 fL (79.0-98.0); PLATELET COUNT (AUTO) 274 K/uL (130-430); RED CELL DISTRIBUTION WIDTH 15.7 % (9.0-15.0); WHITE BLOOD COUNT (AUTO) 14.3 K/uL (4.8-10.8)
[2021-07-25 17:44] LABS: BAND % (MANUAL) 3 % (0-6); LYMPHOCYTES % (MANUAL) 14 % (20-46)
[2021-07-25 17:45] LABS: BASOPHILS % (MANUAL) 0 % (0-2); EOSINOPHILS % (MANUAL) 1 % (0-7); METAMYELOCYTES % 2 % (0-0); MONOCYTES % (MANUAL) 8 % (0-11)
--- NOTE | 2021-07-25 18:37 | NUR ---
END OF SHIFT: PATIENT ADVANCE DIET TO REGULAR PER DR BROWN.INSTRUCTED PATIENT TO EAT SLOWLY. FRIEND AT THE BEDSIDE. CALL LIGHT WITH IN REACH. BED LOCKED AT LOWEST POSITION. CONTINUE TO MONITOR. STABLE THIS TIME.
--- NOTE | 2021-07-25 19:35 | NUR ---
ROUNDS PATIENT RESTING COMFORTABLY IN BED, NOT IN DISTRESS, VITALS STABLE. ASSESSMENT RICARDO AND DOCUMENTED. SEE FLOWSHEET. NEEDS ATTENDED TO. SAFETY MEASURES IN PLACED. CALL LIGHT PLACED WITHIN REACH.
[2021-07-25 20:00] VITALS: BP_SYST 138
[2021-07-25] MEDS: FLUCONAZOLE 100 mg/ NS 50 ML IV SCH (21:06)
[2021-07-25] MEDS: ACETAMINOPHEN 325 MG TABLET PO PRN (21:16)
[2021-07-26] VITALS: BP_SYST 131
--- NOTE | 2021-07-26 00:12 | NUR ---
PATIENT RESTING: Patient resting quietly. No acute distress noted. Vital signs within normal range.
[2021-07-26] MEDS: PIPERACILLIN/TAZO 3.375/DEX-IS 50 ML IV SCH ×3 (05:24→17:20)
[2021-07-26 07:15] LABS: BASOPHILS % (AUTO) 0.3 % (0.0-2.0); EOSINOPHILS # (AUTO) 0.2 K/uL (0.0-0.4); EOSINOPHILS % (AUTO) 1.2 % (0.0-4.0); HEMOGLOBIN 10.7 g/dL (12.0-16.0); LYMPHOCYTES # (AUTO) 1.5 K/uL (1.0-5.5); LYMPHOCYTES % (AUTO) 9.6 % (20.5-51.5); MEAN CORPUSCULAR HEMOGLOBIN 27 pg (27-31); MEAN CORPUSCULAR HGB CONC 34 % (32-36); MEAN CORPUSCULAR VOLUME 81 fL (79.0-98.0); MONOCYTES # (AUTO) 1.3 K/uL (0.0-1.0); MONOCYTES % (AUTO) 8.1 % (1.7-9.3); NEUTROPHILS # (AUTO) 12.6 K/uL (1.8-7.7); NEUTROPHILS % (AUTO) 80.8 % (40.0-70.0); PLATELET COUNT (AUTO) 284 K/uL (130-430); RED BLOOD CELL COUNT(AUTO) 3.97 MIL/uL (4.2-6.2); RED CELL DISTRIBUTION WIDTH 15.3 % (9.0-15.0); WHITE BLOOD COUNT (AUTO) 15.6 K/uL (4.8-10.8)
[2021-07-26 08:00] VITALS: BP_SYST 129
[2021-07-26] MEDS: POTASSIUM CHLORIDE 10 MEQ TAB.PRT.SR PO SCH (08:58)
[2021-07-26 10:39] LABS: ALBUMIN 2.3 g/dL (3.4-4.8); CALCIUM 8.8 mg/dL (8.4-11.0); CREATININE 0.69 mg/dL (0.55-1.30); POTASSIUM 3.2 mmol/L (3.5-5.1)
[2021-07-26 12:00] VITALS: BP_SYST 128
--- NOTE | 2021-07-26 13:27 | NUR ---
Nutrition F/U RD reviewed pt's current EMR record including diet Hx, physician notes, nursing notes, pertinent labs/meds/procedures, care trends, and care activity. Admission Dx: Possible Cholecystitis Pt w/: Cholelithiasis w/ recurrent abdominal pain, recent , abnormal LFT per MD notes. 07/17 S/P Lap cholecystectomy. SARS-CoV-2 Ag Rapid 07/17 Negative Current Diet Order/Nutrition Support: Regular diet x 1 day Subjective Info: RD bedside visit was deferred d/t high pt load. Per EMR review, pt w/ improved PO intake for the past 2 days, and reportedly had loose BM yesterday. Pt is eager to go home. Bradley scale: 21, RN noted, pt w/ surgical incision to anterior abdomen. No edema. Abdomen is soft and nondistended w/ active bowel sounds. Current diet remains adequate. Pertinent Medications: K-dur, Xanax, Zofran, Piperacillin/tazobactam Pertinent Labs: 07/26 WBC 15.6H, Na 139WNL, K 3.2L, BG 99WNL, BUN 7L, Cre 0.69WNL. Ht: 5'5" Wt: 146#/66 kg (07/19) -- stable Body Mass Index: 24.29 kg/m2 %IBW: 117 [place]/Adjusted Body Weight: 125#/57kg Estimated Energy Expenditure (kcals/day) 3581-0573 Kcal/day (25-30 kcal/kg CBW for maintenance) Estimated Protein Required (g/day) 66-79 gm/day (1-1.2 gm/kg CBW for post surgery repletion) Estimated Fluid Required (l/day) 1.7-2L/day (1ml/calorie for maintenance) Problem/Etiology/Signs/Symptoms Inadequate protein-calorie intake r/t diet interruption AEB PO intake meets <50% of estimated needs w/ NPO and liquid diet prior to medical procedure. *ongoing Expected Outcomes/Goals Monitor appetite and PO intake w/ goal of pt meeting more than 75% of estimated nutritional needs, labs trending WNL, normal GI function, skin integrity/wt maintenance. Dietitian Recommendations * Recommend Cardiac diet. * Diet education by RD F/U Follow Up High Risk: F/U in 2-3 days
--- NOTE | 2021-07-26 13:31 | NUR ---
Dietitian Recommendation: * Recommend Cardiac diet. * Diet education by RD F/U Please see Nutrition F/U note for details. JAMES BARRERA
[2021-07-26] MEDS: metroNIDAZOLE 500 MG TABLET PO SCH ×2 (13:52→21:06)
--- NOTE | 2021-07-26 14:05 | NUR ---
Note Pt was encouraged to use IS q1' 10X while awake. Pt gets OOB independently and ambulates to restroom with steady gait with IV pole. Pt denies any needs all shift. 3 Lap sites Band aids are CDI all shift. Pt ambulating in hallway with IV pole independently in steady gait.
[2021-07-26 16:00] VITALS: BP_SYST 140
--- NOTE | 2021-07-26 18:15 | NUR ---
Note Pt sitting up in bed eating her dinner. Pt was checked on q1' and PRN all shift for needs and care. Pt's bed in low position and bed alarm on all shift. Pt denies any needs. Pt has been ambulating in room to restroom and in hallways with steady gait. Call light within reach.
[2021-07-26 21:00] VITALS: BP_SYST 135
[2021-07-26] MEDS: FLUCONAZOLE 100 mg/ NS 50 ML IV SCH (21:07)
--- NOTE | 2021-07-26 21:35 | NUR ---
Patient awake alert & instructed for stool collection , Hat & supplies placed at bedside patient verbalize understanding .
[2021-07-27 00:38] VITALS: BP_SYST 109
--- NOTE | 2021-07-27 02:18 | NUR ---
Hourly Rounding patient Resting call cook given to patient Respirations Regular also unlabored skin dry warm / .
--- NOTE | 2021-07-27 06:03 | NUR ---
Patient Resting is verbally Responsive , call cook given to patient assist as needed & prn / .
[2021-07-27] MEDS: metroNIDAZOLE 500 MG TABLET PO SCH ×3 (06:46→21:36)
[2021-07-27 07:10] LABS: BASOPHILS # (AUTO) 0.1 K/uL (0.0-0.2); BASOPHILS % (AUTO) 0.3 % (0.0-2.0); EOSINOPHILS # (AUTO) 0.2 K/uL (0.0-0.4); EOSINOPHILS % (AUTO) 1.2 % (0.0-4.0); HEMATOCRIT 33.2 % (36-48); HEMOGLOBIN 11.1 g/dL (12.0-16.0); LYMPHOCYTES # (AUTO) 1.8 K/uL (1.0-5.5); LYMPHOCYTES % (AUTO) 9.2 % (20.5-51.5); MEAN CORPUSCULAR HEMOGLOBIN 27 pg (27-31); MEAN CORPUSCULAR HGB CONC 33 % (32-36); MEAN CORPUSCULAR VOLUME 81 fL (79.0-98.0); MONOCYTES # (AUTO) 1.9 K/uL (0.0-1.0); MONOCYTES % (AUTO) 9.8 % (1.7-9.3); NEUTROPHILS # (AUTO) 15.3 K/uL (1.8-7.7); NEUTROPHILS % (AUTO) 79.5 % (40.0-70.0); PLATELET COUNT (AUTO) 352 K/uL (130-430); RED BLOOD CELL COUNT(AUTO) 4.12 MIL/uL (4.2-6.2); RED CELL DISTRIBUTION WIDTH 15.3 % (9.0-15.0); WHITE BLOOD COUNT (AUTO) 19.3 K/uL (4.8-10.8)
[2021-07-27 07:30] LABS: CALCIUM 8.8 mg/dL (8.4-11.0); CREATININE 0.79 mg/dL (0.55-1.30); POTASSIUM 3.9 mmol/L (3.5-5.1)
[2021-07-27 08:00] VITALS: BP_SYST 124
[2021-07-27] MEDS ORDERED: AMOXICILLIN/CLAVULANATE POTASSIUM 500 MG TABLET PO ONE (11:30)
[2021-07-27] MEDS ORDERED: FLUCONAZOLE 200 MG TABLET (DIFLUCAN) PO ONE (11:30)
[2021-07-27 12:40] VITALS: BP_SYST 132
--- NOTE | 2021-07-27 13:10 | NUR ---
Note Pt ambulatory in room and in hallway with steady gait. No needs noted. 3 lap sites with band aids intact and no swelling/drainage/bleeding noted all shift. Call light within reach.
--- NOTE | 2021-07-27 14:05 | NUR ---
Note Dr Charlton was called to notify MD that MRI machine is down today - MRI of head ordered 07/25, cannot be done today, possibly will be done tomorrow. Pt stable in bed. Call light within reach. Addendum: 07/27/21 at 1410 by Fior Nieves RN charted on wrong pt. Dr Culver the on the case.
--- NOTE | 2021-07-27 15:45 | NUR ---
Note Pt's cousin was at bedside and results of tests was explained to pt and pt's cousin through Yoruba speaking RN, questions/concerns were answered at this time. Pt is anxious to go home to her baby. Pt was informed that her WBC's are increasing daily despite the IVPB antibiotics pt is being given daily. Pt and pt's cousin states they understand at this time. No needs noted at this time. Call light within reach.
[2021-07-27 16:55] VITALS: BP_SYST 130
--- NOTE | 2021-07-27 18:08 | NUR ---
Note Pt sitting on side of bed eating her dinner. Pt was checked on q1' and PRN all shift for needs and care. Pt's bed in low position and pt ambulatory to restroom with steady gait. Pt stable and call light within reach.
--- NOTE | 2021-07-27 19:30 | NUR ---
Opening note Received report from day nurse. Patient is awake and alertx4 resting in bed with HOB elevated, Sierra Leonean speaking. No complaints of pain or discomfort at this time. Non labored breathing or SOB and on room air. All needs provided, call light within reach. Bed to lowest and locked. On fall/aspiration precaution.
[2021-07-27 20:51] VITALS: BP_SYST 132
[2021-07-27] MEDS: AMOXICILLIN/CLAVULANATE POTASSIUM 500 MG TABLET PO SCH (21:37)
[2021-07-28] VITALS: BP_SYST 125
[2021-07-28] MEDS: AMOXICILLIN/CLAVULANATE POTASSIUM 500 MG TABLET PO SCH ×3 (03:44→20:32)
[2021-07-28] MEDS: metroNIDAZOLE 500 MG TABLET PO SCH (05:36)
--- NOTE | 2021-07-28 06:28 | NUR ---
Closing note Patient sleeping, and turned to the side, easily awaken by voice and light touch. Alertx4, Maltese speaking. No complaints of pain or discomfort throughout the night. Non labored breathing or SOB and on room air. All needs provided, call light within reach. Bed to lowest and locked. On fall/aspiration precaution.
[2021-07-28 07:52] VITALS: BP_SYST 130
[2021-07-28] MEDS: FLUCONAZOLE 200 MG TABLET (DIFLUCAN) PO SCH (07:56)
--- NOTE | 2021-07-28 08:00 | NUR ---
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 AMBULATORY, TOOK BREAKFAST, NO VOMITING NOTED.
[2021-07-28 09:11] LABS: BASOPHILS # (AUTO) 0.1 K/uL (0.0-0.2); BASOPHILS % (AUTO) 0.4 % (0.0-2.0); EOSINOPHILS # (AUTO) 0.2 K/uL (0.0-0.4); HEMATOCRIT 35.8 % (36-48); HEMOGLOBIN 12.1 g/dL (12.0-16.0); LYMPHOCYTES # (AUTO) 1.9 K/uL (1.0-5.5); LYMPHOCYTES % (AUTO) 8.6 % (20.5-51.5); MEAN CORPUSCULAR HEMOGLOBIN 27 pg (27-31); MEAN CORPUSCULAR HGB CONC 34 % (32-36); MEAN CORPUSCULAR VOLUME 81 fL (79.0-98.0); MONOCYTES # (AUTO) 1.5 K/uL (0.0-1.0); MONOCYTES % (AUTO) 6.9 % (1.7-9.3); NEUTROPHILS % (AUTO) 83.1 % (40.0-70.0); PLATELET COUNT (AUTO) 468 K/uL (130-430); RED BLOOD CELL COUNT(AUTO) 4.42 MIL/uL (4.2-6.2); RED CELL DISTRIBUTION WIDTH 15.4 % (9.0-15.0); WHITE BLOOD COUNT (AUTO) 21.7 K/uL (4.8-10.8)
[2021-07-28 09:20] LABS: CALCIUM 9.1 mg/dL (8.4-11.0); CREATININE 0.79 mg/dL (0.55-1.30); POTASSIUM 3.7 mmol/L (3.5-5.1)
[2021-07-28 09:24] LABS: ALBUMIN 2.8 g/dL (3.4-4.8); TOTAL BILIRUBIN 0.7 mg/dL (0.0-1.0)
--- NOTE | 2021-07-28 12:00 | NUR ---
MRI RE SCHED FOR TOMORROW MRI RE SCHED FOR TOMORROW, MRI TRUCK WAS DOWN AGAIN, NEEDS TO BE FIXED. DR CHAVEZ CALLED AND WANTS PATIENT TO HAVE CT SCAN OF ABDOMEN WITH CONTRAST.
[2021-07-28] MEDS ORDERED: DIATR MEGLU/DIATRIZ SOD 30 ML SOLUTION PO ONE (13:34)
[2021-07-28] MEDS: metroNIDAZOLE 500 mg/NS 100 ML IV SCH ×3 (14:00→21:13)
--- NOTE | 2021-07-28 15:30 | NUR ---
CT SCAN CT SCAN DONE, AWAITING FOR RESULTS.
[2021-07-28 15:41] VITALS: BP_SYST 111
--- NOTE | 2021-07-28 19:30 | NUR ---
OPENING NOTE PATIENT IS AWAKE ALERT ORIENTED X3 BREATHING ROOM AIR NO SIGNS OF PAIN OR DISTRESS. IV SITE PATENT AND INTACT LH SALINE LOCK. BED IS LOW AND CALL LIGHT IS WITHIN REACH.
[2021-07-28] MEDS ORDERED: metroNIDAZOLE 500 mg/NS 200 ML IV ONE (20:43)
[2021-07-29] VITALS: BP_SYST 113
--- NOTE | 2021-07-29 | NUR ---
PATIENT IS COMFORTABLE ASLEEP. BED IS LOW AND CALL LIGHT IS IN REACH.
--- NOTE | 2021-07-29 04:00 | NUR ---
PATIENT IS ASLEEP NO SIGNS OF PAIN OR DISTRESS. BED IS LOW AND CALL LIGHTS IN REACH.
[2021-07-29] MEDS: AMOXICILLIN/CLAVULANATE POTASSIUM 500 MG TABLET PO SCH (04:11)
[2021-07-29] MEDS: metroNIDAZOLE 500 mg/NS 100 ML IV SCH ×3 (05:26→22:50)
--- NOTE | 2021-07-29 06:20 | NUR ---
CLOSING NOTE PATIENT IS ALERT ORIENTED X3 ASLEEP BREATHING ROOM AIR NO SIGNS OF PAIN OR DISTRESS. IV SITE PATENT AND INTACT LEFT HAND. BED IS LOW AND CALL LIGHT IN REACH.
[2021-07-29 08:12] VITALS: BP_SYST 146
[2021-07-29] MEDS: FLUCONAZOLE 200 MG TABLET (DIFLUCAN) PO SCH (09:21)
--- NOTE | 2021-07-29 12:00 | NUR ---
ROUNDS DENIES PAIN AT THIS TIME
[2021-07-29 12:41] VITALS: BP_SYST 133
[2021-07-29] MEDS: PIPERACILLIN/TAZO 4.5GM/DEX-IS 100 ML IV SCH ×2 (13:46→22:50)
--- NOTE | 2021-07-29 16:07 | NUR ---
Nutrition F/U RD reviewed pt's current EMR record including diet Hx, physician notes, nursing notes, pertinent labs/meds/procedures, care trends, and care activity. Admission Dx: Possible Cholecystitis Pt w/: Cholelithiasis w/ recurrent abdominal pain, recent , abnormal LFT per MD notes. 07/17 S/P Lap cholecystectomy. SARS-CoV-2 Ag Rapid 07/17 Negative Current Diet Order/Nutrition Support: Regular, cardiac diet x3 days Subjective Info: RD rounded to pt's bedside. Pt is primarily Gabonese-speaking. Bedscale wt taken: 146# -- c/w documented wt record (stable wt since admission). Per EMR review, pt has less abd pain, no N/V/C/D, appetite has been improving; CT scan of abd revealed acute pancreatitis; PO intake average of 74% x4 meals; last BM x1 07/27. Current diet is adequate/appropriate. Pertinent Medications: zofran, piperacillin/tazobactam IV Pertinent Labs: 07/28: WBC 15.6 H, Na 135 L, K 3.7 WNL, BG 147 H, BUN 11 WNL Ht: 5'5" Wt: 146#/66 kg (07/19) -- stable Body Mass Index: 24.29 kg/m2 %IBW: 117 [place]/Adjusted Body Weight: 125#/57kg Estimated Energy Expenditure (kcals/day) 2278-0652 Kcal/day (25-30 kcal/kg CBW for maintenance) Estimated Protein Required (g/day) 66-79 gm/day (1-1.2 gm/kg CBW for post surgery repletion) Estimated Fluid Required (l/day) 1.7-2L/day (1ml/calorie for maintenance) Problem/Etiology/Signs/Symptoms Inadequate protein-calorie intake r/t diet interruption AEB PO intake meets <50% of estimated needs w/ NPO and liquid diet prior to medical procedure. *ongoing Expected Outcomes/Goals Monitor appetite and PO intake w/ goal of pt meeting more than 75% of estimated nutritional needs, labs trending WNL, normal GI function, skin integrity/wt maintenance. Dietitian Recommendations * Recommend continuing regular, cardiac diet * RD provided cardiac diet teaching (Gabonese handouts provided) Follow Up Moderate Risk: F/U in 3-5 days
--- NOTE | 2021-07-29 16:10 | NUR ---
OPENING NOTES LATE ENTRY DUE TO PT CARE 0730- IN THE PATIENT ROOM. PT LAYING IN BED. APPEARS COMFORTABLE. DENIES PAIN. PATIENT SPEAKS FINNISH ONLY 0900- VITALS STABLE AT THIS TI,E. DR LINDSEY HERE. RELAYED CT ABDOMEN RESULT.
--- NOTE | 2021-07-29 16:10 | NUR ---
Dietitian Recommendations * Recommend continuing regular, cardiac diet * RD provided cardiac diet teaching (English handouts provided) LP, RD Please refer to Nutrition F/U for details.
[2021-07-29 17:38] VITALS: BP_SYST 133
--- NOTE | 2021-07-29 18:51 | NUR ---
CLOSING DENIES PAIN AT THIS TIME. ALL NEEDS ATTENDED
--- NOTE | 2021-07-29 19:30 | NUR ---
OPENING NOTE PATIENT AWAKE ALERT ORIENTED X4 BREATHING ROOM AIR NO SIGNS OF PAIN OR DISTRESS. IV SITE PATENT AND INTACT LH. BED IS LOW AND CALL LIGHT IS IN REACH.
[2021-07-29 20:00] VITALS: BP_SYST 130
[2021-07-30] VITALS: BP_SYST 130
--- NOTE | 2021-07-30 | NUR ---
PATIENT IS ASLEEP NO SIGNS OF PAIN OR DISTRESS. BED IS LOW AND CALL LIGHT IS REACH.
--- NOTE | 2021-07-30 04:00 | NUR ---
PATIENT IS ASLEEP COMFORTABLE NO SIGNS OF PAIN OR DISTRESS. BED IS LOW AND CALL LIGHTS IN REACH.
[2021-07-30] MEDS: PIPERACILLIN/TAZO 4.5GM/DEX-IS 100 ML IV SCH ×3 (06:20→23:34)
[2021-07-30] MEDS: metroNIDAZOLE 500 mg/NS 100 ML IV SCH ×3 (06:20→23:33)
--- NOTE | 2021-07-30 06:48 | NUR ---
CLOSING NOTE PATIENT IS ASLEEP COMFORTABLE NO SIGNS OF PAIN OR DISTRESS BREATHING ROOM AIR. IV SITE PATENT AND INTACT ON LEFT HAND. BED IS LOW AND CALL LIGHTS IN REACH. WILL ENDORSE NEXT SHIFT PATIENT PENDING LABS.
[2021-07-30 08:00] VITALS: BP_SYST 134
[2021-07-30 08:43] LABS: BASOPHILS # (AUTO) 0.1 K/uL (0.0-0.2); BASOPHILS % (AUTO) 0.4 % (0.0-2.0); EOSINOPHILS # (AUTO) 0.4 K/uL (0.0-0.4); HEMATOCRIT 32.8 % (36-48); HEMOGLOBIN 11.1 g/dL (12.0-16.0); LYMPHOCYTES # (AUTO) 1.5 K/uL (1.0-5.5); LYMPHOCYTES % (AUTO) 8.5 % (20.5-51.5); MEAN CORPUSCULAR HEMOGLOBIN 27 pg (27-31); MEAN CORPUSCULAR HGB CONC 34 % (32-36); MEAN CORPUSCULAR VOLUME 81 fL (79.0-98.0); MONOCYTES # (AUTO) 1.7 K/uL (0.0-1.0); MONOCYTES % (AUTO) 9.3 % (1.7-9.3); NEUTROPHILS # (AUTO) 14.3 K/uL (1.8-7.7); NEUTROPHILS % (AUTO) 79.8 % (40.0-70.0); PLATELET COUNT (AUTO) 432 K/uL (130-430); RED BLOOD CELL COUNT(AUTO) 4.06 MIL/uL (4.2-6.2); RED CELL DISTRIBUTION WIDTH 15.2 % (9.0-15.0)
[2021-07-30] MEDS: FLUCONAZOLE 200 MG TABLET (DIFLUCAN) PO SCH (09:24)
--- NOTE | 2021-07-30 10:50 | NUR ---
alert, oriented, language barrier, yet able to make basic needs known. tolerated regular diet well, no complaint of discomfort . 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 encouraged to get out of bed, and ambulates.
[2021-07-30 12:00] VITALS: BP_SYST 128
[2021-07-30 16:17] VITALS: BP_SYST 126
--- NOTE | 2021-07-30 19:20 | NUR ---
CHANGE OF SHIFT; endorsed by niki, S/P bebeto sood 07/17. no distress. call light within reach.
[2021-07-30 20:30] VITALS: BP_SYST 118
--- NOTE | 2021-07-30 20:30 | NUR ---
NOTES: [pt. awake, watching tv. VS checked. IV site on left hand infiltrated and painful to touch. will start another IV site. denies any pain. been ambulating to the restroom. small incision on abdomen checked. intact. encouraged on deep breathing. call light wihtin reach.
--- NOTE | 2021-07-30 22:00 | NUR ---
NOTES: nurse Delfino able to insert IV on right antecubital.
[2021-07-30] MEDS ORDERED: PIPERACILLIN/TAZOBACTAM 4.5 GM/VIAL (ZOSYN) IV ONE (23:09)
[2021-07-30] MEDS ORDERED: metroNIDAZOLE 500 mg/NS 200 ML IV ONE (23:09)
--- NOTE | 2021-07-31 00:30 | NUR ---
NOTES: pt. sleeping when checked, IV antibiotic still infusing.
--- NOTE | 2021-07-31 03:30 | NUR ---
NOTES: condition observed, continue to monitor.
[2021-07-31 05:00] VITALS: BP_SYST 116
[2021-07-31] MEDS: metroNIDAZOLE 500 mg/NS 100 ML IV SCH ×3 (05:12→23:28)
[2021-07-31] MEDS: PIPERACILLIN/TAZO 4.5GM/DEX-IS 100 ML IV SCH ×3 (06:14→23:28)
--- NOTE | 2021-07-31 06:49 | NUR ---
CLOSING NOTES; pt. been sleeping most of the night. IVF patent, due IV antibiotics given. needs attended. for further care and assistance. call light within reach. pt. ambulates. denies any pain.
[2021-07-31 08:00] VITALS: BP_SYST 125
[2021-07-31] MEDS: FLUCONAZOLE 200 MG TABLET (DIFLUCAN) PO SCH (08:17)
[2021-07-31 11:27] VITALS: BP_SYST 125
--- NOTE | 2021-07-31 12:30 | NUR ---
NURSING NOTE PATIENT LUNCH DELIVERED AND VS OBTAINED. PATIENT CURRENTLY HAS NO COMPLAINT OF PAIN OR DISCOMFORT. WILL CONTINUE TO MONITOR.
--- NOTE | 2021-07-31 14:04 | NUR ---
OPENING NOTE PATIENT FOUND SLEEPING IN BED, VS OBTAINED AND PATIENT HAD NO COMPLAINTS OF PAIN OR DISCOMFORT. PATIENT IS MOSTLY [place]AST [place] SPEAKING. SAFETY PRECAUTIONS IN PLACE. WILL CONTINUE TO MONITOR.
[2021-07-31 16:08] VITALS: BP_SYST 111
--- NOTE | 2021-07-31 18:04 | NUR ---
Opening Note Patient found awake in bed and expresses no complaints of pain or discomfort at this time. safety, aspiration, respiratory and fall precautions are in place. meal kemi was delivered. IV is patent and intact. All needs met throughout shift. will endorse to night baker.
[2021-07-31 21:02] VITALS: BP_SYST 114
[2021-07-31 23:31] VITALS: BP_SYST 122
[2021-08-01] MEDS: metroNIDAZOLE 500 mg/NS 100 ML IV SCH ×2 (05:29→14:53)
[2021-08-01] MEDS: PIPERACILLIN/TAZO 4.5GM/DEX-IS 100 ML IV SCH ×2 (05:29→14:59)
[2021-08-01 08:00] VITALS: BP_SYST 119
--- NOTE | 2021-08-01 08:01 | NUR ---
Opening note Patient found awake in bed and expresses no complaints of pain or discomfort at this time. safety, aspiration, respiratory and fall precautions are in place. meal kemi was delivered. IV is patent and intact. discussed plan or care with patient. will continue to monitor.
[2021-08-01 08:19] LABS: BASOPHILS % (AUTO) 0.5 % (0.0-2.0); EOSINOPHILS # (AUTO) 0.2 K/uL (0.0-0.4); EOSINOPHILS % (AUTO) 2.6 % (0.0-4.0); LYMPHOCYTES # (AUTO) 1.5 K/uL (1.0-5.5); LYMPHOCYTES % (AUTO) 16.1 % (20.5-51.5); MEAN CORPUSCULAR HEMOGLOBIN 27 pg (27-31); MEAN CORPUSCULAR HGB CONC 33 % (32-36); MEAN CORPUSCULAR VOLUME 81 fL (79.0-98.0); MONOCYTES # (AUTO) 0.8 K/uL (0.0-1.0); MONOCYTES % (AUTO) 7.8 % (1.7-9.3); PLATELET COUNT (AUTO) 477 K/uL (130-430); RED BLOOD CELL COUNT(AUTO) 4.06 MIL/uL (4.2-6.2); RED CELL DISTRIBUTION WIDTH 15.2 % (9.0-15.0); WHITE BLOOD COUNT (AUTO) 9.6 K/uL (4.8-10.8)
[2021-08-01] MEDS: FLUCONAZOLE 200 MG TABLET (DIFLUCAN) PO SCH (08:42)
[2021-08-01 09:13] LABS: ALBUMIN 2.4 g/dL (3.4-4.8); BILIRUBIN,DIRECT 0.1 mg/dL (0.0-0.3); CALCIUM 8.8 mg/dL (8.4-11.0); CREATININE 0.75 mg/dL (0.55-1.30); POTASSIUM 3.5 mmol/L (3.5-5.1); TOTAL BILIRUBIN 0.4 mg/dL (0.0-1.0)
[2021-08-01 12:00] VITALS: BP_SYST 117
--- NOTE | 2021-08-01 13:00 | NUR ---
Nursing note Patient found in bed resting with no complaints of pain or discomfort. Patient currently waiting for DR Culver for further DC orders. DR Casas cleared patient for DC. Will continue to monitor.
[2021-08-01 15:22] VITALS: BP_SYST 117
[2021-08-01 16:00] VITALS: BP_SYST 121
--- NOTE | 2021-08-01 18:10 | NUR ---
Closing note Patient found awake in bed and expresses no complaints of pain or discomfort at this time. safety, aspiration, respiratory and fall precautions are in place. meal kemi was delivered. IV is patent and intact. All needs met throughout shift. Patient currently for DR Culver for DC orders and prescriptions. DR Casas cleared patient for DC, will endorse to poll clerk.
[2021-08-01] MEDS ORDERED: AMOX-426 PO (19:40)
[2021-08-01] MEDS ORDERED: LACT1CAP72 PO (19:41)
[2021-08-01] MEDS ORDERED: POTA25TA7 PO (19:42)
[2021-08-01] MEDS ORDERED: feso4 PO (19:43)
[2021-08-01] MEDS ORDERED: METR500T PO (19:44)
[2021-08-01] MEDS ORDERED: PANT20TA2 PO (19:45)
[2021-08-01 20:00] VITALS: BP_SYST 131
--- NOTE | 2021-08-02 05:54 | NUR ---
D/C Patient Patient given medication reconciliation form and D/C instructions. Exit Care provided. Patient verbalized understanding. MD discussed with patient the results and treatment provided. Ambulatory with steady gait for discharge to home. Patient in stable condition, ID band removed. IV catheter removed, intact and dressing applied, no active bleeding. Rx of given. Patient educated on pain management. All belongings sent with patient.;surgeon prescribed;norco;5/325mg;po prn pain and to schedule appointment:monday;08/04/12. prescribd;augmentin;po,culturelle,K+chl,feso4,flagyl;po,protonix;po.i provided education:tuvaluan translation. v/s stable staus.pt.stable status d/c home in cognizance of the family.
== END 2021-08-01 20:00 | disposition home or self-care (01) | DRG 263 ==
LOC: SED 17:48 → SMU 07-17 06:25
PROVIDERS: ADMIT Family Medicine; ATTEND Family Medicine
PROC: BF131ZZ Fluoroscopy of Gallbladder and Bile Ducts using Low Osmolar Contrast (ICD-10-PCS; 2021-07-17)
PROC: 0FT44ZZ Resection of Gallbladder, Percutaneous Endoscopic Approach (ICD-10-PCS; principal; 2021-07-17 12:00)
PROC: 0F798ZZ Dilation of Common Bile Duct, Via Natural or Artificial Opening Endoscopic (ICD-10-PCS; 2021-07-19)
PROC: BF101ZZ Fluoroscopy of Bile Ducts using Low Osmolar Contrast (ICD-10-PCS; 2021-07-19)
PROC: 0FC98ZZ Extirpation of Matter from Common Bile Duct, Via Natural or Artificial Opening Endoscopic (ICD-10-PCS; 2021-07-19)
DX: K80.66 Calculus of gallbladder and bile duct with acute and chronic cholecystitis without obstruction (principal); K85.10 Biliary acute pancreatitis without necrosis or infection; D72.829 Elevated white blood cell count, unspecified; Z20.822 Contact with and (suspected) exposure to COVID-19; E66.9 Obesity, unspecified; J98.11 Atelectasis; Z68.24 Body mass index [BMI] 24.0-24.9, adult; Z90.49 Acquired absence of other specified parts of digestive tract
CPT/HCPCS: 36415; 71045; 74018; 74181; 76000; 76376; 76705; 76770; 76856-TC; 80048; 80053; 80076; 80202; 81003; 82150; 83605; 83690; 83735; 84703; 85007; 85025; 85027; 85610-TC; 85730-TC; 87040-TC; 87081; 87230-TC; 88304; 96361; 96365; 96375; 99285; C1727; C1769; C9399; J0330; J0690; J1100; J1450; J1885; J2001; J2250; J2270; J2405; J2543; J2704; J2710; J2765; J3010; J3370; J3480; J3490; J7030; J7050; J7120; Q9964; Q9967